=== PATIENT | female | born 1985 | race Caucasian/White ===

== ENCOUNTER → 2024-07-31 15:15 | Outpatient (CLI) | payer OTHER, SELFPAY ==
[2024-07-31 20:24] LABS: Urine N gonorrhoeae NOT DETECTED
[2024-07-31 20:31] LABS: Urine Chlamydia NOT DETECTED
== END ==
PROVIDERS: Visit Provider Student in an Organized Health Care Education/Training Program
DX: Z11.3 Encounter for screening for infections with a predominantly sexual mode of transmission (principal)
CPT/HCPCS: 87491; 87591

== ENCOUNTER → 2024-07-31 15:36 | Outpatient (CLI) | payer OTHER, SELFPAY ==
[2024-07-31 16:49] LABS: Natera Collection Specimen Collected
== END ==
PROVIDERS: Referring Provider Student in an Organized Health Care Education/Training Program; Visit Provider Student in an Organized Health Care Education/Training Program
DX: Z34.01 Encounter for supervision of normal first pregnancy, first trimester (principal); Z11.3 Encounter for screening for infections with a predominantly sexual mode of transmission
CPT/HCPCS: 36415; 86850; 86900; 86901; 87491; 87591

== ENCOUNTER → 2024-09-25 11:55 | Outpatient (CLI) | payer OTHER, SELFPAY ==
--- NOTE | 2024-09-25 11:56 | DI.US.S_ITS ---
PROCEDURE: US OB >= 14 WEEKS FETUS INDICATIONS: 20 weeks anatomy scan OUTSIDE/PRIOR DATING DATA: Last menstrual period (LMP): 05/14/2024 LMP-based estimated date of delivery (BENJAMIN): 02/18/2025 Estimated date of delivery (BENJAMIN) from first dating scan: 02/12/2025. The calculations are made using the working BENJAMIN of 02/12/2025. TECHNIQUE: Real-time scanning was performed of the fetus, with image documentation and biometric measurements. Endovaginal scanning: Not performed COMPARISON: [facility], US, US OB <= 14 WEEKS FETUS, 07/31/2024, 15:23. FINDINGS: General: A single living intrauterine gestation is present. Presentation: Vertex Placenta: Placental position is left fundal, without previa. Amniotic fluid index: 14.4 cm, normal range is 5-24 cm. Single deepest vertical pocket is 5.2 cm. heart rate: 165 beats per minute. Maternal cervical canal: Closed and measures 6.9 cm long. Normal lower limit is 2.5 cm. biometrics: Biparietal diameter: 4.7 cm, 20 weeks, 2 days. Head circumference: 17.7 cm, 20 weeks, 1 day. Abdominal circumference: 14.4 cm, 19 weeks, 5 days. Femur length: 3.2 cm, 20 weeks, 0 day. Clinically estimated gestational age: 20 weeks, 0 day. Composite gestational age from present scan: 20 weeks, 0 day. Estimated weight and percentile: 319 g, 39%. Anatomic survey: Neuro: Ventricles are non-dilated at less than 10 mm. Cisterna magna is normal at 3-11 mm. Cerebellum is normal in size and morphology. Nuchal skin fold: Normal at less than 6 mm between 14-21 weeks gestational age. Face: Nose and lips, facial profile are normal. Spine: No evidence for spina bifida. Heart: 4-chambered heart is present, with normal ventricular outflow tracts. Diaphragm: Diaphragm is intact. Stomach: Left-sided stomach is present. Kidneys: No hydronephrosis. Normal is less than 5 mm in 2nd trimester, less than 7 mm in 3rd trimester. Cord: 3-vessel cord has orthotopic insertion. Bladder: Normal in size. Extremities: All 4 extremities identified. IMPRESSION: 1. Single live intrauterine gestation with fetus in vertex presentation. heart rate is 165 beats per minute. Normal KEILY at 14.4 cm. 2. Normal growth. Estimated weight is at 39%. 3. Normal anatomic survey. We strive to produce accurate, complete, and clear reports of imaging services. To assist us in improving patient care, this report was composed using standard report templates and voice recognition software. Therefore, it may contain abnormal punctuation, insertions and/or omissions. Occasional wrong-word or sound-alike substitutions may occur. Though we review the report and make efforts to correct it, we do recommend that the report be read carefully in proper context to recognize any text inaccuracies. Dictated by: Don Corona M.D. on 09/25/2024 at 14:54 Approved by: Don Corona M.D. on 09/25/2024 at 14:56
== END ==
PROVIDERS: Referring Provider Student in an Organized Health Care Education/Training Program; Visit Provider Student in an Organized Health Care Education/Training Program
DX: Z34.02 Encounter for supervision of normal first pregnancy, second trimester (principal); Z3A.20 20 weeks gestation of pregnancy
CPT/HCPCS: 76811

== ENCOUNTER → 2024-11-13 09:16 | Outpatient (CLI) | payer OTHER, SELFPAY ==
[2024-11-13 12:22] LABS: Hematocrit 32.6 % (36-46); Hemoglobin 11.2 g/dL (12.0-16.0)
[2024-11-13 13:10] LABS: GTT (PREG) 1 Hour PP 50gm Dose 128 mg/dL (76-139)
[2024-11-14 19:44] LABS: Hep C Virus Ab w/Reflex Quant NEGATIVE s/c (NEGATIVE)
== END ==
PROVIDERS: Referring Provider Student in an Organized Health Care Education/Training Program; Visit Provider Student in an Organized Health Care Education/Training Program
DX: Z34.00 Encounter for supervision of normal first pregnancy, unspecified trimester (principal); Z67.91 Unspecified blood type, Rh negative; Z13.1 Encounter for screening for diabetes mellitus; Z13.0 Encounter for screening for diseases of the blood and blood-forming organs and certain disorders involving the immune mechanism
CPT/HCPCS: 36415; 82950; 85014; 85018; 86803; 86850

== ENCOUNTER 2024-11-22 18:29 | Observation (INO) | payer OTHER, SELFPAY ==
--- NOTE | 2024-11-22 18:50 | DI.US.S_ITS ---
PROCEDURE: US OB BIOPHYSICAL PROFILE INDICATIONS: WORSENING DECREASED MOVEMENT X 1 WEEK OUTSIDE/PRIOR DATING DATA: Working BENJAMIN: 02/12/2025 TECHNIQUE: Real-time scanning was performed of the fetus for biophysical profile, with image documentation. Color and pulse Doppler interrogation was also performed of the umbilical artery near its insertion into the placenta. Endovaginal scanning: Not performed COMPARISON: None. FINDINGS: General: A single living intrauterine gestation is present. Presentation: Breech Placenta: Placental position is left fundal, without previa. Amniotic fluid index: 6.9 cm, normal range is 5-24 cm. Single deepest vertical pocket is 3.9 cm. heart rate: 160 beats per minute. Maternal cervical canal: 4.6 cm long. Normal lower limit is 2.5 cm. Clinically estimated gestational age: 28 weeks 1 day Biophysical profile: Tone: 2 points. Movement: 2 points. Respiration: 2 points. Largest pocket of fluid: 2 points. Umbilical artery Doppler: Not requested Nuchal cord noted x1. IMPRESSION: Single living intrauterine at 28 weeks 1 day, BENJAMIN of 02/12/2025. BPP 8 of 8. Nuchal cord x1. We strive to produce accurate, complete, and clear reports of imaging services. To assist us in improving patient care, this report was composed using standard report templates and voice recognition software. Therefore, it may contain abnormal punctuation, insertions and/or omissions. Occasional wrong-word or sound-alike substitutions may occur. Though we review the report and make efforts to correct it, we do recommend that the report be read carefully in proper context to recognize any text inaccuracies. Dictated by: Alec Sanchez M.D. on 11/22/2024 at 21:17 Approved by: Alec Sanchez M.D. on 11/22/2024 at 21:19
[2024-11-22 20:29] VITALS: BP 115/58; PULSE 87; RESP 15; TEMP 36.6
== END 2024-11-22 20:44 | disposition home or self-care (01) ==
LOC: LABOR 18:31
PROVIDERS: Admitting Provider Student in an Organized Health Care Education/Training Program; Referring Provider Student in an Organized Health Care Education/Training Program; Visit Provider Student in an Organized Health Care Education/Training Program
DX: O36.8130 Decreased fetal movements, third trimester, not applicable or unspecified (principal); Z3A.28 28 weeks gestation of pregnancy
CPT/HCPCS: 59025; 76817; 76819; 84112; G0378; G0379

== ENCOUNTER → 2024-12-04 07:00 | Outpatient (CLI) | payer OTHER, SELFPAY ==
--- NOTE | 2024-12-04 07:01 | DI.US.S_ITS ---
PROCEDURE: US OB LIMITED INDICATIONS: ADVANCED MATERNAL AGE - GROWTH OUTSIDE/PRIOR DATING DATA: The calculations are made using the BENJAMIN of 02/12/2025. TECHNIQUE: Real-time scanning was performed of the fetus, with image documentation and biometric measurements. Endovaginal scanning: Not performed COMPARISON: [facility], OB BIOPHYSICAL PROFILE, 11/22/2024, 19:43. FINDINGS: General: A single living intrauterine gestation is present. Presentation: Vertex. Placenta: Placental position is left fundal , without previa. Possible left anterior succenturiate lobe with a posterior placenta, vessel seen between the 2 placentas. Amniotic fluid index: 12.8 cm, normal range is 5-24 cm. Single deepest vertical pocket is 4.7 cm. heart rate: 153 beats per minute. Maternal cervical canal: 3.6 cm long. Normal lower limit is 2.5 cm. biometrics: Biparietal diameter: 7.6 cm, 30 weeks 4 days Head circumference: 27.4 cm, 29 weeks 6 days Abdominal circumference: 23.2 cm, 27 weeks 4 days Femur length: 5.7 cm, 30 weeks 0 days Clinically estimated gestational age: 30 weeks 0 days Composite gestational age from present scan: 29 weeks 4 days Estimated weight and percentile: 1284 g, 8th percentile Other: Normal umbilical artery SD ratios of 3.2, 2.8 and 3.1. IMPRESSION: 1. Single live intrauterine consistent with 29 weeks and 4 days. 2. Estimated weight is in the 8th percentile, recommend follow-up ultrasound. 3. Normal umbilical artery SD ratios. 4. Left fundal placenta versus posterior placenta with a left anterior succenturiate lobe. We strive to produce accurate, complete, and clear reports of imaging services. To assist us in improving patient care, this report was composed using standard report templates and voice recognition software. Therefore, it may contain abnormal punctuation, insertions and/or omissions. Occasional wrong-word or sound-alike substitutions may occur. Though we review the report and make efforts to correct it, we do recommend that the report be read carefully in proper context to recognize any text inaccuracies. Dictated by: Alfie Stearns M.D. on 12/04/2024 at 15:23 Approved by: Alfie Stearns M.D. on 12/04/2024 at 15:28
== END ==
PROVIDERS: Referring Provider Student in an Organized Health Care Education/Training Program; Visit Provider Student in an Organized Health Care Education/Training Program
DX: Z34.03 Encounter for supervision of normal first pregnancy, third trimester (principal); Z3A.30 30 weeks gestation of pregnancy
CPT/HCPCS: 76815; 76820

== ENCOUNTER 2024-12-07 11:48 | Outpatient (CLI) | payer OTHER, SELFPAY ==
--- NOTE | 2024-12-07 13:03 | PM.OBTRLD ---
Visit Information Visit Information Date of evaluation: 01/06/25 Primary OB Provider: Yomaira Bauer On-call OB Provider: Zohra Avila Reason for Evaluation: Yes non-stress test Comments/Additional reasons for admission: IUGR [facility] Medical History (Updated 01/08/25 @ 10:13 by Yomaira Bauer DO) Headache Ovarian cyst (~2008) Infertility (~1999) Migraine with aura Lumbar disc herniation PCOS (polycystic ovarian syndrome) Menorrhagia (~1999) Surgical History (Updated 07/24/24 @ 13:47 by Leonila Hernandez RN) No pertinent past surgical history Family History (Updated 07/24/24 @ 13:56 by Leonila Hernandez RN) Mother HELLP syndrome Twin Sister HELLP syndrome Cjraq-Mcvsumkml-Ciypu (WPW) syndrome Aunt VSD (ventricular septal defect) Aunt Hypertension Family/Other Renal agenesis Grandmother Brain aneurysm Grandmother Stroke Grandfather Alzheimer's disease Grandfather Heart valve replaced Aunt Alzheimer's disease Family/Other Fxpeo-Tgkylojvg-Ueabq (WPW) syndrome Social History marital status: unmarried,single number of children: 0 household members: family lives independently: Yes caregiver/support person: No housing: other (RV usually, currently at parents' home) pets and animals: No education level: college (currently working on Master's degree for mental health counseling) occupational status: previously employed current occupational exposures/hazards: No 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 travel history: recent (domestic only) seatbelt use: always water heater temp set < 120 deg: Yes working smoke detector in home: Yes fire extinguisher in home: Yes carbon monox detector in home: Yes firearms in home: Yes firearms unloaded and locked: Yes do you feel safe at home: Yes Tobacco: How many years used: 2 second hand exposure: Yes (mom vapes outside) alcohol intake: former (very rarely when not ) substance use type: does not use during the past year weight has: remained stable well-balanced diet: about half the time daily servings fruits/ve-4 caffeine: No Type(s) of exercise: none Evaluation Evaluation Baseline heart rate: 135 Variability: Average (6-10) monitor accelerations: Present Monitor Decelerations: Absent Category of Tracing: Reactive Status: Category l Diagnosis, Plan/Disposition Plan/Disposition Plan: continue surveillance as scheduled
== END 2024-12-07 13:05 | disposition home or self-care (01) ==
LOC: LABOR 12:44 → OB 13:34
PROVIDERS: Referring Provider Student in an Organized Health Care Education/Training Program; Visit Provider Obstetrics & Gynecology
DX: Z36.9 Encounter for antenatal screening, unspecified (principal)
CPT/HCPCS: 59025; G0378; G0379

== ENCOUNTER 2024-12-13 12:56 | Outpatient (CLI) | payer OTHER, SELFPAY | END 2024-12-13 13:30 | disposition home or self-care (01) | LOC: OB 15:54 | PROVIDERS: Referring Provider Student in an Organized Health Care Education/Training Program; Visit Provider Student in an Organized Health Care Education/Training Program | DX: O09.513 Supervision of elderly primigravida, third trimester (principal); O36.5930 Maternal care for other known or suspected poor fetal growth, third trimester, not applicable or unspecified; O41.03X0 Oligohydramnios, third trimester, not applicable or unspecified; Z3A.31 31 weeks gestation of pregnancy | CPT/HCPCS: 59025; G0378; G0379 ==

== ENCOUNTER 2024-12-18 12:48 | Outpatient (CLI) | payer OTHER, SELFPAY ==
--- NOTE | 2024-12-18 13:24 | DI.US.S_ITS ---
PROCEDURE: US UMBILICAL CORD DOPPLER INDICATIONS: IUGR, oligohydramnios OUTSIDE/PRIOR DATING DATA: Last menstrual period (LMP): 05/14/2024 LMP-based estimated date of delivery (BENJAMIN): 08/21/2024 First dating scan (date and location): 07/31/2024 Estimated date of delivery (BENJAMIN) from first dating scan: 02/12/2025 The calculations are made using the working BENJAMIN of 02/12/2025. COMPARISON: None. TECHNIQUE: Real-time scanning was performed of the fetus, with image documentation. Color and pulse Doppler interrogation was then performed of the umbilical artery near its insertion into the placenta. FINDINGS: General: Single living intrauterine gestation is present. Presentation: Vertex Placenta: Left fundal KEILY 8.5 cm Single deepest vertical pocket: 4.3 cm heart rate: 143 BPM EGA: 32 week 0 day Umbilical artery S/D ratios: 3.8, 3.2, 2.7 IMPRESSION: Single live intrauterine consistent with 32 week 0 day gestation Approved by: Hesham Alonzo M.D. on 12/18/2024 at 15:02
--- NOTE | 2024-12-18 14:43 | P.TNLD_ITS ---
Visit Information Visit Information Date of evaluation: 12/18/24 On-call OB Provider: Yomaira Bauer Reason for Evaluation: Yes non-stress test Vital Signs Vital Signs: BP 109/75, P 102, T 37.1 [facility] Medical History (Updated 12/18/24 @ 15:03 by Yomaira Bauer DO) Headache Ovarian cyst (~2008) Infertility (~1999) Migraine with aura Lumbar disc herniation PCOS (polycystic ovarian syndrome) Menorrhagia (~1999) Surgical History (Updated 07/24/24 @ 13:47 by Leonila Hernandez RN) No pertinent past surgical history Family History (Updated 07/24/24 @ 13:56 by Leonila Hernandez RN) Mother HELLP syndrome Twin Sister HELLP syndrome Mlbtl-Ojdsxkvzz-Xzyht (WPW) syndrome Aunt VSD (ventricular septal defect) Aunt Hypertension Family/Other Renal agenesis Grandmother Brain aneurysm Grandmother Stroke Grandfather Alzheimer's disease Grandfather Heart valve replaced Aunt Alzheimer's disease Family/Other Xbbfw-Suwbjjhvd-Ovety (WPW) syndrome Social History marital status: unmarried,single number of children: 0 household members: family lives independently: Yes caregiver/support person: No housing: other (RV usually, currently at parents' home) pets and animals: No education level: college (currently working on Master's degree for mental health counseling) occupational status: previously employed current occupational exposures/hazards: No 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 travel history: recent (domestic only) seatbelt use: always water heater temp set < 120 deg: Yes working smoke detector in home: Yes fire extinguisher in home: Yes carbon monox detector in home: Yes firearms in home: Yes firearms unloaded and locked: Yes do you feel safe at home: Yes Tobacco: How many years used: 2 second hand exposure: Yes (mom vapes outside) alcohol intake: former (very rarely when not ) substance use type: does not use during the past year weight has: remained stable well-balanced diet: about half the time daily servings fruits/ve-4 caffeine: No Type(s) of exercise: none Evaluation Evaluation Baseline heart rate: 135 Variability: Moderate (6-25) monitor accelerations: Present Monitor Decelerations: Absent Category of Tracing: Reactive Diagnosis, Plan/Disposition Final Diagnosis (1) affected by growth restriction: Status: Acute (2) 31 weeks gestation of : Status: Acute Plan/Disposition Plan: 39-year-old at 31+ 6 weeks presenting today for NST and weekly UA dopplers. Reactive NST, with normal UA Dopplers today. -follow up later this week for repeat NST -follow up with MFM next week OB Disposition: home
== END 2024-12-18 13:45 | disposition home or self-care (01) ==
LOC: OB 14:58
PROVIDERS: Referring Provider Student in an Organized Health Care Education/Training Program; Visit Provider Student in an Organized Health Care Education/Training Program
DX: O26.893 Other specified pregnancy related conditions, third trimester (principal); Z3A.31 31 weeks gestation of pregnancy; Z67.91 Unspecified blood type, Rh negative; O36.5990 Maternal care for other known or suspected poor fetal growth, unspecified trimester, not applicable or unspecified
CPT/HCPCS: 59025; 76820; G0378; G0379

== ENCOUNTER 2024-12-21 12:46 | Observation (INO) | payer OTHER, SELFPAY | END 2024-12-21 13:47 | disposition home or self-care (01) | LOC: LABOR 12:48 | PROVIDERS: Admitting Provider Student in an Organized Health Care Education/Training Program; Referring Provider Student in an Organized Health Care Education/Training Program; Visit Provider Student in an Organized Health Care Education/Training Program | DX: O09.513 Supervision of elderly primigravida, third trimester (principal); O36.5930 Maternal care for other known or suspected poor fetal growth, third trimester, not applicable or unspecified; O41.03X0 Oligohydramnios, third trimester, not applicable or unspecified; Z3A.32 32 weeks gestation of pregnancy | CPT/HCPCS: 59025; G0378; G0379 ==

== ENCOUNTER 2025-01-01 12:55 | Outpatient (CLI) | payer OTHER, SELFPAY ==
--- NOTE | 2025-01-01 13:37 | P.TNLD_ITS ---
Visit Information Visit Information Date of evaluation: 01/01/25 Primary OB Provider: Yomaira Bauer On-call OB Provider: Zohra Avila Reason for Evaluation: Yes non-stress test Vital Signs Vital Signs: reviewed in OBIX wnl [facility] Medical History (Updated 12/18/24 @ 15:03 by Yomaira Bauer DO) Headache Ovarian cyst (~2008) Infertility (~1999) Migraine with aura Lumbar disc herniation PCOS (polycystic ovarian syndrome) Menorrhagia (~1999) Surgical History (Updated 07/24/24 @ 13:47 by Leonila Hernandez RN) No pertinent past surgical history Family History (Updated 07/24/24 @ 13:56 by Leonila Hernandez RN) Mother HELLP syndrome Twin Sister HELLP syndrome Xebjf-Lkbwsxelp-Ugogo (WPW) syndrome Aunt VSD (ventricular septal defect) Aunt Hypertension Family/Other Renal agenesis Grandmother Brain aneurysm Grandmother Stroke Grandfather Alzheimer's disease Grandfather Heart valve replaced Aunt Alzheimer's disease Family/Other Zjjtd-Iwgvkcuzo-Cjasm (WPW) syndrome Social History marital status: unmarried,single number of children: 0 household members: family lives independently: Yes caregiver/support person: No housing: other (RV usually, currently at parents' home) pets and animals: No education level: college (currently working on Master's degree for mental health counseling) occupational status: previously employed current occupational exposures/hazards: No 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 travel history: recent (domestic only) seatbelt use: always water heater temp set < 120 deg: Yes working smoke detector in home: Yes fire extinguisher in home: Yes carbon monox detector in home: Yes firearms in home: Yes firearms unloaded and locked: Yes do you feel safe at home: Yes Tobacco: How many years used: 2 second hand exposure: Yes (mom vapes outside) alcohol intake: former (very rarely when not ) substance use type: does not use during the past year weight has: remained stable well-balanced diet: about half the time daily servings fruits/ve-4 caffeine: No Type(s) of exercise: none Evaluation Evaluation Variability: Moderate (6-25) monitor accelerations: Present Monitor Decelerations: Absent Category of Tracing: Reactive Status: Category l Diagnosis, Plan/Disposition Plan/Disposition Plan: routine precautions f./u as scheduled OB Disposition: home
== END 2025-01-01 13:35 | disposition home or self-care (01) ==
LOC: LABOR 13:36 → OB 01-02 17:28
PROVIDERS: Referring Provider Student in an Organized Health Care Education/Training Program; Visit Provider Student in an Organized Health Care Education/Training Program
DX: O41.03X0 Oligohydramnios, third trimester, not applicable or unspecified (principal); O09.513 Supervision of elderly primigravida, third trimester; Z3A.33 33 weeks gestation of pregnancy
CPT/HCPCS: 59025; G0378; G0379

== ENCOUNTER → 2025-01-07 13:40 | Outpatient (CLI) | payer OTHER, SELFPAY ==
[2025-01-07 14:32] LABS: Add Manual Diff / Slide Review NO; Hematocrit 35.4 % (36-46); Hemoglobin 12.5 g/dL (12.0-16.0); Lymphocytes Absolute Auto 1500 /uL (1100-4500); Mean Corpuscular HGB Conc 35.1 % (30-36); Mean Corpuscular Hemoglobin 32.0 PG (26-34); Mean Corpuscular Volume 91.0 fL (80-100); Platelet Count 133 X10^3/uL (150-400)
== END ==
PROVIDERS: Referring Provider Student in an Organized Health Care Education/Training Program; Visit Provider Student in an Organized Health Care Education/Training Program
DX: R23.3 Spontaneous ecchymoses (principal)
CPT/HCPCS: 36415; 85025

== ENCOUNTER 2025-01-12 13:08 | Outpatient (CLI) | payer OTHER, SELFPAY | END 2025-01-12 13:48 | disposition home or self-care (01) | LOC: OB 01-14 12:24 | PROVIDERS: Referring Provider Obstetrics & Gynecology; Visit Provider Obstetrics & Gynecology | DX: O99.343 Other mental disorders complicating pregnancy, third trimester (principal); F41.9 Anxiety disorder, unspecified; Z3A.38 38 weeks gestation of pregnancy | CPT/HCPCS: 59025; G0378; G0379 ==

== ENCOUNTER 2025-01-14 12:48 | Outpatient (CLI) | payer OTHER, SELFPAY ==
--- NOTE | 2025-01-14 13:22 | PM.OBTRLD ---
Visit Information Visit Information Date of evaluation: 01/14/25 Primary OB Provider: Yomaira Bauer On-call OB Provider: Noelle Dolan Reason for Evaluation: Yes non-stress test non-stress test reason: other (IUGR ) Comments/Additional reasons for admission: 39 yo G1 presenting for scheduled NST for AMA. complicated by IUGR s/p MFM f/up resolution but plan for continued NSTs. [facility] Medical History (Updated 01/08/25 @ 10:13 by Yomaira Bauer DO) Headache Ovarian cyst (~2008) Infertility (~1999) Migraine with aura Lumbar disc herniation PCOS (polycystic ovarian syndrome) Menorrhagia (~1999) Surgical History (Updated 07/24/24 @ 13:47 by Leonila Hernandez, RN) No pertinent past surgical history Family History (Updated 07/24/24 @ 13:56 by Leonila Hernandez RN) Mother HELLP syndrome Twin Sister HELLP syndrome Lqfmu-Ubcapinmy-Tylek (WPW) syndrome Aunt VSD (ventricular septal defect) Aunt Hypertension Family/Other Renal agenesis Grandmother Brain aneurysm Grandmother Stroke Grandfather Alzheimer's disease Grandfather Heart valve replaced Aunt Alzheimer's disease Family/Other Iodis-Alzuziusq-Bgsbe (WPW) syndrome Social History marital status: unmarried,single number of children: 0 household members: family lives independently: Yes caregiver/support person: No housing: other (RV usually, currently at parents' home) pets and animals: No education level: college (currently working on Master's degree for mental health counseling) occupational status: previously employed current occupational exposures/hazards: No 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 travel history: recent (domestic only) seatbelt use: always water heater temp set < 120 deg: Yes working smoke detector in home: Yes fire extinguisher in home: Yes carbon monox detector in home: Yes firearms in home: Yes firearms unloaded and locked: Yes do you feel safe at home: Yes Tobacco: How many years used: 2 second hand exposure: Yes (mom vapes outside) alcohol intake: former (very rarely when not ) substance use type: does not use during the past year weight has: remained stable well-balanced diet: about half the time daily servings fruits/ve-4 caffeine: No Type(s) of exercise: none Exam Vital Signs (past 8 hours): BP: 104/65 P- 88 T- 36.5C Evaluation Evaluation Baseline heart rate: 150 Variability: Moderate (6-25) monitor accelerations: Present Monitor Decelerations: Absent Contraction Frequency (minutes): 0 Status: Category l Diagnosis, Plan/Disposition Plan/Disposition Plan: 39 yo G1 presenting for scheduled NST for AMA. complicated by IUGR s/p MFM f/up resolution but plan for continued NSTs. NST reactive today. pt d/c'ed home, continue f/up wtih Primary OB OB Disposition: home
== END 2025-01-14 13:23 | disposition home or self-care (01) ==
LOC: LABOR 12:55 → OB 15:57
PROVIDERS: Referring Provider Family Medicine; Visit Provider Family Medicine
DX: O09.513 Supervision of elderly primigravida, third trimester (principal); O36.5930 Maternal care for other known or suspected poor fetal growth, third trimester, not applicable or unspecified; Z3A.38 38 weeks gestation of pregnancy
CPT/HCPCS: 59025; G0378; G0379

== ENCOUNTER 2025-01-17 22:06 | Outpatient (CLI) | payer OTHER, SELFPAY ==
--- NOTE | 2025-01-17 22:10 | DI.US.S_ITS ---
PROCEDURE: US OB BIOPHYSICAL PROFILE INDICATIONS: decreased movement OUTSIDE/PRIOR DATING DATA: Working BENJAMIN: 02/12/2025 TECHNIQUE: Real-time scanning was performed of the fetus for biophysical profile, with image documentation. Endovaginal scanning: Not performed COMPARISON: [facility], , OB BIOPHYSICAL PROFILE, 11/22/2024, 19:43. FINDINGS: General: A single living intrauterine gestation is present. Presentation: Vertex. Placenta: Placental position is left fundal , without previa. Amniotic fluid index: 16 cm, normal range is 5-24 cm. Single deepest vertical pocket is 5.5 cm. heart rate: 119 beats per minute. Maternal cervical canal: Not visualized. Clinically estimated gestational age: 36 weeks 2 days. Biophysical profile: Tone: 2 points. Movement: 2 points. Respiration: 2 points. Largest pocket of fluid: 2 points. Umbilical artery Doppler: Not requested. IMPRESSION: Single living intrauterine at 36 weeks 2 days, BENJAMIN of 02/12/2025. BPP 8 of 8. We strive to produce accurate, complete, and clear reports of imaging services. To assist us in improving patient care, this report was composed using standard report templates and voice recognition software. Therefore, it may contain abnormal punctuation, insertions and/or omissions. Occasional wrong-word or sound-alike substitutions may occur. Though we review the report and make efforts to correct it, we do recommend that the report be read carefully in proper context to recognize any text inaccuracies. Dictated by: Alec Sanchez M.D. on 01/17/2025 at 23:23 Approved by: Alec Sanchez M.D. on 01/17/2025 at 23:24
== END 2025-01-17 23:11 | disposition home or self-care (01) ==
LOC: LABOR 23:19 → OB 01-21 10:59
PROVIDERS: Referring Provider Student in an Organized Health Care Education/Training Program; Visit Provider Student in an Organized Health Care Education/Training Program
DX: O36.8130 Decreased fetal movements, third trimester, not applicable or unspecified (principal); O09.513 Supervision of elderly primigravida, third trimester; Z3A.36 36 weeks gestation of pregnancy
CPT/HCPCS: 59025; 76819; G0378; G0379

== ENCOUNTER 2025-01-22 10:16 | Outpatient (CLI) | payer OTHER, SELFPAY | END 2025-01-22 10:48 | disposition home or self-care (01) | LOC: LABOR 10:48 → OB 01-23 17:02 | PROVIDERS: Referring Provider Student in an Organized Health Care Education/Training Program; Visit Provider Student in an Organized Health Care Education/Training Program | DX: O09.513 Supervision of elderly primigravida, third trimester (principal); O41.03X0 Oligohydramnios, third trimester, not applicable or unspecified; Z36.85 Encounter for antenatal screening for Streptococcus B; Z3A.36 36 weeks gestation of pregnancy | CPT/HCPCS: 59025; 87653; G0378; G0379 ==

== ENCOUNTER → 2025-01-22 11:36 | Outpatient (CLI) | payer OTHER, SELFPAY ==
[2025-01-23 11:22] LABS: Strep Grp B PCR NEG for Grp B Strep
== END ==
PROVIDERS: Visit Provider Student in an Organized Health Care Education/Training Program
DX: Z36.85 Encounter for antenatal screening for Streptococcus B (principal)
CPT/HCPCS: 87653

== ENCOUNTER 2025-01-24 07:04 | Inpatient (IN) | payer OTHER, SELFPAY ==
--- NOTE | 2025-01-24 08:34 | PM.OBHP.IH.1 ---
OB HPI Date/Time Date of admission: 01/24/25 Date Patient Seen: 01/24/25 Time Patient Seen: 09:15 History of Present Condition Chief complaint: Induction BENJAMIN Calculator Estimated Delivery Date Method Current WG Current Estimate 02/13/25 Ultrasound #1 37w 1d Other Estimates 02/18/25 LMP (Uncertain) 36w 3d 02/10/25 Ultrasound #2 37w 4d : 1 Para: 0 Narrative: 39yo at 37+1wks admitted for IOL due to diagnosis of FGR with increased doppler resistance yesterday at [facility]. She reports physically feeling well, denies leaking fluid or vaginal bleeding. care: good care Dating criteria OB: LMP confirmed by 1st trimester US Ultrasounds: normal mid trimester US Obstetrical complications: growth restriction Narrative: Ultrasound Ultrasound Details:: Anatomy US 09/25/24: normal anatomy, fundal placenta, EFW 39%ile Growth US 12/04/24: EFW 8%ile, normal UA dopplers Specific Issues/Plans G1 [x ] cfDNA- low risk XX; [x ] Rh D- POS; declined carrier screening FGR (EFW 8%ile at 30wks)--> [x ] MFM referral- scheduled for 12/25/24; followup growth scheduled with MFM (scheduled for 01/23) EFW 10% with increased doppler resistance (recommended IOL 37wks) gestational thrombocytopenia (133) AMA (>40yo)--> [x] ASA at 12wks (AMA & FHx of HELLP); [ x] growth sono 32wks (see above); [x ] weekly NSTs 34wks; [x ] IOL at 39wks per MFM Rh negative --> [ x] rhogam at 28wks Partner in [place] (now broke up, not involved) Assigned to [facility] Indications Indication for induction OB: intra-uterine growth restriction Preadmission Labs Last OB Lab Results: Blood Type A Negative 07/31/24, 15:45 Antibody Screen Negative 11/13/24, 10:47 Hct, (36-46) 35.9 % L Today, 08:00 Hgb, (12.0-16.0) 12.2 g/dL Today, 08:00 Hepatitis C Antibody, (NEGATIVE) Negative s/c 11/13/24, 10:47 Glucose 1 Hr 50 gm, (76-139) 128 mg/dL 11/13/24, 10:47 Group B Strep (PCR) Neg for grp b strep 01/22/25, 11:36 Glucose Tolerance Testin hr (negative) -: Chlamydia screen: negative, Gonorrhea screen: negative and Urine: negative -: PAP smear: Normal Genetic Screens: Cell-free DNA: Normal External Labs -: Urine: negative Evaluation Evaluation Baseline heart rate: 140 Variability: Moderate (6-25) monitor accelerations: Present Monitor Decelerations: Absent Contraction Frequency (minutes): 5 Uterine Contraction Intensity: Mild Status: Category l Dilation (cm): 1 Effacement (%): 50 station: -3 Position of cervix: posterior [facility] Medical History (Updated 01/22/25 @ 11:52 by Yomaira Buaer DO) Headache Ovarian cyst (~2008) Infertility (~1999) Migraine with aura Lumbar disc herniation PCOS (polycystic ovarian syndrome) Menorrhagia (~1999) Surgical History (Updated 07/24/24 @ 13:47 by Leonila Hernandez RN) No pertinent past surgical history Family History (Updated 07/24/24 @ 13:56 by Leonila Hernandez RN) Mother HELLP syndrome Twin Sister HELLP syndrome Hxxdr-Bbryenqln-Ohlic (WPW) syndrome Aunt VSD (ventricular septal defect) Aunt Hypertension Family/Other Renal agenesis Grandmother Brain aneurysm Grandmother Stroke Grandfather Alzheimer's disease Grandfather Heart valve replaced Aunt Alzheimer's disease Family/Other Axipz-Myrawyfdc-Hjnjt (WPW) syndrome Social History marital status: unmarried,single number of children: 0 household members: family lives independently: Yes caregiver/support person: No housing: other (RV usually, currently at parents' home) pets and animals: No education level: college (currently working on Master's degree for mental health counseling) occupational status: previously employed current occupational exposures/hazards: No 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 travel history: recent (domestic only) seatbelt use: always water heater temp set < 120 deg: Yes working smoke detector in home: Yes fire extinguisher in home: Yes carbon monox detector in home: Yes firearms in home: Yes firearms unloaded and locked: Yes do you feel safe at home: Yes Tobacco: How many years used: 2 second hand exposure: Yes (mom vapes outside) alcohol intake: former (very rarely when not ) substance use type: does not use during the past year weight has: remained stable well-balanced diet: about half the time daily servings fruits/ve-4 caffeine: No Type(s) of exercise: none Meds Home Medications and Allergies Home Medications ?Medication ?Instructions ?Recorded ?Confirmed ?Type vitamin-ferrous sulfate 1 tab PO DAILY 07/24/24 01/24/25 History 27 mg iron-folic acid 0.8 mg tablet aspirin 81 mg tablet 81 mg PO DAILY 11/22/24 01/24/25 History ferrous sulfate PO 01/24/25 History Allergies Allergy/AdvReac Type Severity Reaction Status Date / Time No Known Drug Allergies Allergy Verified 01/24/25 09:59 Review of Systems Review of Systems ROS: Yes All systems reviewed with the patient and are negative except as otherwise documented OB Exam Vital signs Blood Pressure: 113/77 Pulse Rate: 96 Temperature: 97.3 F HENMT Head: normal to inspection and normocephalic Eyes General: appearance normal, both eyes and all related structures Resp Effort & Inspection: normal respiratory effort and able to speak in complete sentences Extremities Lower extremity: Yes normal to inspection GI Inspection: normal to inspection Other: gravid, nontender, nondistended Objective Labs 01/24/25 08:00 Assessment and Plan Assessment and Plan Assessment and Plan narrative: 39yo at 37+1wks admitted for induction of labor due to growth restriction with increased UA doppler flow resistance. Her PNC is also c/b gestational thrombocytopenia, advanced maternal age, and Rh negative status. -CBC, T&S on admission -continuous EFM -epidural PRN -GBS neg, ppx not indicated -PPH risk low -VTE risk low, SCDs with epidural -anticipate L&D Counseling: Common procedures and interventions related to the management of were explained to the patient, including assistance at vaginal delivery with episiotomy, vacuum, or forceps, use of medications to stop premature labor or induce labor, and assessment including auscultation (listening to the heart), use of electronic monitoring (external and / or internal), and use of scalp electrode and/or intrauterine pressure catheter.? It was also explained that approximately 20-30% of mothers have a need for delivery during their labor course. It was explained to the patient that , labor and delivery are ordinarily normal physiological events and can be expected to provide a healthy outcome for mother and baby in the majority of cases. However, there are complications that may arise during , labor, and delivery, such as: hemorrhage requiring administration of blood and/or blood products, surgical intervention, possibly even hysterectomy for life-saving purposes; possibility of infection requiring antibiotics, prolonged hospital stay, and rarely surgical intervention; possibility of blood clots;? possibility of retained products of conception requiring surgical intervention;? possibility of serious tears or injury to the vagina, cervix, perineum, or rectum;? possibility of injury to abdominal structures if delivery is required;? and rarely maternal or may occur. Time-Based Coding :: [45min] spent with patient and on the chart (including review of chart, obtaining history, exam, reviewing outside data, placing orders, documenting exam and treatment plan, and counseling patient) on [01/24/25].
[2025-01-24 09:22] LABS: Add Manual Diff / Slide Review NO; Hematocrit 35.9 % (36-46); Hemoglobin 12.2 g/dL (12.0-16.0); Lymphocytes Absolute Auto 1900 /uL (1100-4500); Mean Corpuscular HGB Conc 34.0 % (30-36); Mean Corpuscular Hemoglobin 30.9 PG (26-34); Mean Corpuscular Volume 90.9 fL (80-100); Platelet Count 123 X10^3/uL (150-400)
[2025-01-24 10:03] VITALS: BP 113/77; PULSE 96; TEMP 36.3
[2025-01-24 10:07] VITALS: BP 113/77
[2025-01-24] MEDS: DINOPROSTONE VAG (CERVIDIL) 10 MG VAG (10:43)
--- NOTE | 2025-01-25 07:30 | PM.OBPNLAB ---
Date/Time Date Patient Seen: 01/25/25 Time Patient Seen: 07:10 Pain Control Pain control: tolerating well Pelvic Exam Dilation (cm): 1 Effacement (%): 25 station: -3 Contractions Contraction frequency (min): 5 Contraction pattern: Irregular Contraction intensity: Mild Status status: Category l Heart Rate Baseline: 140 Monitor Accelerations: Present Monitor Decelerations: Absent Monitor Variability: Moderate Assessment and Plan Assessment: induction ongoing Comments: 39yo at 37+2wks admitted for IOL due to FGR. She received cervidil yesterday, then 2 doses of cytotec overnight. Gooden bulb placed this morning at 7:20am. -continue cytotec for now -re-evaluate after gooden bulb expulsed
--- NOTE | 2025-01-25 13:04 | PM.OBPNLAB ---
Date/Time Date Patient Seen: 01/25/25 Time Patient Seen: 13:04 Pain Control Pain control: tolerating well Pelvic Exam Dilation (cm): 3 Effacement (%): 25 station: -3 Amniotic membrane status: Intact Contractions Contraction frequency (min): 5 Contraction pattern: Irregular Contraction intensity: Mild Status status: Category ll Heart Rate Baseline: 160 Monitor Accelerations: Present Monitor Decelerations: Periodic Monitor Variability: Moderate Assessment and Plan Assessment: induction ongoing Comments: 39-year-old at 37+ 2 weeks, undergoing induction of labor. Francisco bulb came out around noon. SVE as above. -repeat cytotec dose (now s/p 3 doses)
[2025-01-25] MEDS: LACTATED RINGERS 1,000 ML 100 ML IV (17:05)
[2025-01-25] MEDS: OXYTOCIN PREMIX 30 UNIT/500 ML PLAST..BAG 200 UNIT IV (17:06)
[2025-01-25] MEDS: fentaNYL 100 MCG/2 ML INJ 50 MCG IV (18:22)
[2025-01-25 19:28] LABS: Add Manual Diff / Slide Review NO; Hematocrit 24.1 % (36-46); Hemoglobin 8.0 g/dL (12.0-16.0); Lymphocytes Absolute Auto 800 /uL (1100-4500); Mean Corpuscular HGB Conc 33.3 % (30-36); Mean Corpuscular Hemoglobin 31.0 PG (26-34); Mean Corpuscular Volume 93.2 fL (80-100); Platelet Count 69 X10^3/uL (150-400)
[2025-01-25 19:45] LABS: Add Manual Diff / Slide Review NO; Hematocrit 37.2 % (36-46); Hemoglobin 12.7 g/dL (12.0-16.0); Lymphocytes Absolute Auto 1400 /uL (1100-4500); Mean Corpuscular HGB Conc 34.1 % (30-36); Mean Corpuscular Hemoglobin 31.1 PG (26-34); Mean Corpuscular Volume 91.1 fL (80-100); Platelet Count 111 X10^3/uL (150-400)
--- NOTE | 2025-01-25 20:24 | PM.AN.REGBLK ---
[facility] <Zarina Dsouza CRNA - Last Filed: 01/25/25 20:33> Pre-procedure PMH/ROS narrative: 39-year-old at 37+ 2 weeks, undergoing induction of labor, called to bedside to place epidural for labor pain relief Exam narrative: See pre-anesthesia worksheet ASA Class: II Labs: Hct 37.2 % (36-46) 01/25/25 19:40 Plt Count 111 X10^3/uL (150-400) L 01/25/25 19:40 Medications: Current Medications Generic Name Dose Route Start Last Admin Trade Name Freq PRN Reason Stop Dose Admin Calcium Carbonate 1,000 mg 01/24/25 08:31 Calcium Carbonate 500 Mg Tab PO Q2HR PRN Dyspepsia Carboprost Tromethamine 250 mcg 01/24/25 08:31 Carboprost 250 Mcg/Ml Ampul IM Q90M PRN Bleeding Fentanyl 50 mcg 01/25/25 18:09 01/25/25 18:22 Fentanyl 100 Mcg/2 Ml Inj IV 50 mcg Q1H PRN Administration Pain, Severe (7-10) Oxytocin/Lactated Ringer's 30 unit in 500 mls @ 200 mls/hr 01/24/25 08:31 01/25/25 17:06 Oxytocin Premix IV 200 mls/hr CONT PRN Administration Bleeding Protocol Tranexamic Acid 1,000 mg/ 100 mls @ 600 mls/hr 01/24/25 08:31 Sodium Chloride IV NOW PRN Bleeding Oxytocin/Lactated Ringer's 30 unit in 500 mls @ 2 mls/hr 01/25/25 16:42 Oxytocin Premix IV TITRATE ZE Protocol 2 MILLIUNIT/MIN Lidocaine HCl 20 ml 01/24/25 08:31 Lidocaine 1% 20 Ml INJ INTRA-OP PRN Post Delivery Methylergonovine Maleate 0.2 mg 01/24/25 08:31 Methylergonovine 0.2 Mg Tablet PO Q6HR PRN Heavy Bleeding Methylergonovine Maleate 0.2 mg 01/24/25 08:31 Methylergonovine 0.2 Mg/Ml Vial IM NOW PRN Bleeding Misoprostol 800 mcg 01/24/25 08:31 Misoprostol 200 Mcg Tablet MN NOW PRN Bleeding Misoprostol 400 mcg 01/24/25 08:31 Misoprostol 200 Mcg Tablet SL NOW PRN Bleeding Misoprostol 25 mcg 01/24/25 23:15 01/25/25 12:59 Misoprostol 25 Mcg Tablet PO 25 mcg Q4H ZE Administration Naloxone HCl 0.2 mg 01/24/25 08:31 Naloxone 0.4 Mg/Ml Vial IV Q2MIN PRN Opiate Reversal Ondansetron HCl 4 mg 01/24/25 08:31 Ondansetron 4 Mg/2 Ml Inj IV Q4HR PRN Nausea And Vomiting Oxytocin 10 unit 01/24/25 08:31 Oxytocin 10 Unit/Ml Vial IM NOW PRN Bleeding Allergies: Allergies Allergy/AdvReac Type Severity Reaction Status Date / Time No Known Drug Allergies Allergy Verified 01/24/25 09:59 Procedure Insertion date: 01/25/25 Insertion time: 19:57 Prep/Local: betadine x3 (Chloraprep) and 1% lidocaine Interspace: L3-L4 Patient position: sitting Needle: 17 gauge Tuohy Loss of resistance with: saline VIKI at (cm): 6 Catheter placed at SKIN (cm): 14 Catheter in SPACE (cm): 8 Insertion: Yes CSF, No Blood, No Paresthesia with insertion, No Paresthesia with injection and No Test dose reaction Initial Medications TEST DOSE time: 20:01 TEST DOSE: 1.5% lidocaine with epinephrine 1:200k (mL): 5 BOLUS DOSE time: 20:15 BOLUS DOSE (mL): 10 (1ml 0.25% bupivacaine intrathecal dose @1958, then 10ml epidural bolus from pump @ 2014) Infusion INFUSION: 0.125% bupivacaine and with fentanyl 2 mcg/mL Initial rate (mL/hr): 8 Post-procedure Anesthesia date START: 01/25/25 Anesthesia time START: 19:50 <Beth Kaur CRNA - Last Filed: 01/28/25 08:17> Pre-procedure --: 2040 pt with c/o contraction pain. decision made to remove epidural catheter. 2044 sterile prep, drape and prep with sterile technique. v/s/s. lido 1% cc skin wheel at l3 l4. 17 g tuohy advanged with VIKI using saline at 6 cm. 27 x pencil SAB needle + csf, - heme 0.5 mL lido 1% injected into the intrathecal space. 2052 intrathecal dose 2052 flushed epidural with 5 cc ns and threaded catheter in 2054 test dose negative 2058 pump restarted 2058 bolus of 5 ml infusate Post-procedure Anesthesia date END: 01/26/25 Anesthesia time END: 02:13 Post-procedure Anesthesia Assessment: Yes CV function: HR/BP stable, Yes Resp function: RR/sat/airway adequate, Yes Post-op hydration adequate, Yes Pain control adequate, Yes Nausea & vomiting absent, Yes Temperature > 36 C and Yes Mental status appropriate
--- NOTE | 2025-01-25 22:00 | PM.OBPNLAB ---
Pain Control Pain control: epidural Pelvic Exam Dilation (cm): 8 (per RN exam) Amniotic membrane status: Ruptured Status status: Category ll Heart Rate Baseline: 155 Monitor Accelerations: Present Monitor Decelerations: Periodic and Variable Monitor Variability: Moderate Assessment and Plan Comments: Called with update from RN. Patient comfortable with epidural, 8cm dilated with thin effacement. I reviewed the tracing at 2203, category II with occasional non-recurrent variable & late decels, however overall with moderate variability and 15x15 accels, thus will continue expectant management at this time. -anticipate
[2025-01-26] MEDS: LACTATED RINGERS 1,000 ML 100 ML IV ×2 (01:18→01:19)
[2025-01-26] MEDS: TRANEXAMIC ACID 1,000 MG in SODIUM CHLORIDE 0.9% 100 ML 600 MG IV (02:30)
--- NOTE | 2025-01-26 02:30 | PM.OBPRVD ---
Labor & Delivery Delivery date: 01/26/25 Delivery Time: 02:03 Cervical ripening method: other (cervidil, misoprostol, gooden bulb) Induction method: per pitocin protocol Delivery monitor: external FHT and external uterine Route of delivery: L&D Laceration Description: Perineal - 1st Degree Delivery repair: vicryl Quantitative Blood Loss: 150 Anesthesia Type: Epidural Complications: none Narrative: The patient progressed to C/C/+2 with pitocin augmentation and epidural anesthesia. After approximately 2hrs of maternal pushing efforts, the infant delivered in OA position and restituted LOT. Nuchal cord x1 was reduced at the perineum. The anterior shoulder delivered with gentle downward pressure. The posterior shoulder and rest of body delivered with ease. The cord was doubly clamped and cut after a 60sec delay with the placed on maternal abdomen. The placenta delivered spontaneously and was intact with a 3-vessel cord. The fundus was noted to be firm with bimanual massage and pitocin. Inspection of the cervix, vagina, and perineum was notable for a 1st degree perineal laceration. Repair was performed using 3-0 Vicryl in a running, unlocked fashion. Skin was reapproximated in a running, subcuticular fashion. At the end of the repair, all tissues noted to be hemostatic. All sponges were removed from the vagina. The patient tolerated delivery well and remained in the labor room with the at the bedside. [place] Baby 1: gender: Female Placenta delivery description: Spontaneous Cord Vessel Description: 3 Vessels and Nuchal Cord score (1 min): 9 score (5 min): 9 weight: 5 lb 11.077 oz Plan for aftercare: Routine care
[2025-01-26] MEDS: DERMOPLAST SPRAY 20% 60 ML 1 SPRAY TOP (04:48)
[2025-01-26 10:05] LABS: Add Manual Diff / Slide Review NO; Hematocrit 32.4 % (36-46); Hemoglobin 11.3 g/dL (12.0-16.0); Lymphocytes Absolute Auto 1200 /uL (1100-4500); Mean Corpuscular HGB Conc 34.8 % (30-36); Mean Corpuscular Hemoglobin 31.5 PG (26-34); Mean Corpuscular Volume 90.5 fL (80-100); Platelet Count 102 X10^3/uL (150-400)
[2025-01-26] MEDS: RHO(D) IMMUNE GLOBULIN 1,500 UNIT SYRINGE 1500 UNIT IM (10:09)
[2025-01-26] MEDS: DOCUSATE 100 MG CAPSULE PO (10:10)
[2025-01-26] MEDS: PRENATAL VIT,CALC/IRON/FOLIC 1 TABLET 1 TAB PO (10:10)
[2025-01-26] MEDS: IBUPROFEN 600 MG TABLET PO ×3 (11:05→23:15)
[2025-01-27 05:16] LABS: Add Manual Diff / Slide Review NO; Hematocrit 33.5 % (36-46); Hemoglobin 11.4 g/dL (12.0-16.0); Lymphocytes Absolute Auto 1900 /uL (1100-4500); Mean Corpuscular HGB Conc 34.1 % (30-36); Mean Corpuscular Hemoglobin 31.2 PG (26-34); Mean Corpuscular Volume 91.5 fL (80-100); Platelet Count 97 X10^3/uL (150-400)
[2025-01-27] MEDS: IBUPROFEN 600 MG TABLET PO (05:36)
--- NOTE | 2025-01-27 11:24 | PM.OBDS.1 ---
Discharge Providers Provider Date of admission: 01/24/25 07:04 Discharge Date: 01/27/25 Primary care physician: Dion BECK Provider Consults: 01/24/25 08:31 Consult to Anesthesiology Urgent Comment: Consulting Provider: Anesthesiologist Reason for consultation: Epidural 01/26/25 02:41 Consult to Director Corporate Compliance Routine Comment: Discharge provider: Yomaira Bauer DO Summary Hospital Course Date Patient Seen: 01/27/25 Time Patient Seen: 11:33 Diagnoses: Term gestation at 37+3wks growth restriction Advanced maternal age Rh negative status Gestational thrombocytopenia Hospital Course: 39yo [id number] admitted at 37+1wks for induction of labor due to growth restriction. She progressed to an uncomplicated spontaneous vaginal delivery, productive of a viable female infant. Her course was uncomplicated. On day #2, she was ambulating, tolerating regular diet, voiding spontaneously with minimal lochia. Her pain was well controlled with oral medications, thus she was discharged to home on day #2. Peripartum Data Infant Delivery Method: Natural Vaginal Laceration Description: Perineal - 1st Degree Procedures: External monitoring Induction of labor Epidural anesthesia Spontaneous vaginal delivery Obstetrical laceration repair complications: none 1: Gender: Female Disposition of : home Discharge Diagnosis (1) growth restriction antepartum: Status: Acute (2) Gestational thrombocytopenia: Status: Acute (3) Rh negative status during : Status: Acute (4) Advanced maternal age (AMA), 40 years or greater: Status: Acute (5) 37 weeks gestation of : Status: Acute Status at Discharge Cognitive/behavioral status at discharge: oriented Functional status at discharge: independent ambulation Overall status at discharge: patient is progressing back to baseline Time Spent with Patient Time attestation: Total time spent providing and/or coordinating discharge services: Time spent: Less than 30 minutes Objective Labs 01/27/25 05:00 Labs: Laboratory Results - last 24 hr 01/26/25 01/27/25 09:55 05:00 WBC 12.2 H RBC 3.67 L Hgb 11.4 L Hct 33.5 L MCV 91.5 MCH 31.2 MCHC 34.1 RDW 13.4 Plt Count 97 L Neut % (Auto) 76.6 H Lymph % (Auto) 15.8 L [place] % (Auto) 5.9 Eos % (Auto) 1.2 L Baso % (Auto) 0.5 Neut # (Auto) 9300 H Lymph # (Auto) 1900 [place] # (Auto) 700 Eos # (Auto) 200 Baso # (Auto) 100 Maternal Bleed Negative Exam Vital Signs (past 8 hours): vitals reviewed in OBIX, within normal parameters Const General: cooperative, healthy appearing, comfortable and No acute distress Resp Effort & Inspection: normal respiratory effort GI Inspection: normal to inspection Other: fundus firm and nontender at U-2 Skin General: no rashes or lesions noted Neuro General: patient alert and patient awake Extrem General: normal to inspection, no pedal edema and no calf tenderness Psych Mood: congruent mood Affect: normal affect Discharge Plan Discharge Plan Patient Disposition: Home Provider Discharge Comment: Take ibuprofen 600mg every 6hrs and/or acetaminophen 650mg every 6hrs as needed for pain. Avoid placing anything in the vagina for 6 weeks. Discharge orders & Medications Prescriptions: Continued vit-ferrous sulfat-FA 27 mg iron- 0.8 mg tablet 1 tab PO DAILY ferrous sulfate [Iron (ferrous sulfate)] PO Patient Comments: takes every other day Discontinued aspirin [Adult Low Dose Aspirin] 81 mg Tablet 81 mg PO DAILY Follow up/Referrals: Yomaira Bauer DO [Physician, REMOTE SENSING SPECIALIST] Diet/Activity/Treatments Diet: Diet as Tolerated Activity: Ambulate as tolerated. Skin/Wound/Dressing Care Report to your healthcare provider any signs of infection, such as:: chills, fever, increased pain and unusual drainage Visit Report/Discharge Packet Instructions: DI for Labor and Delivery, Vaginal Stand Alone Forms: Patient Portal/API, Stroke Signs & Symptoms Discharge Data Primary Care Provider: Dion Jaimes Attending Provider: Ymoaira Bauer Admit Date/Time: 01/24/25 07:04
== END 2025-01-27 13:00 | disposition home or self-care (01) | DRG 806 ==
PROVIDERS: Admitting Provider Student in an Organized Health Care Education/Training Program; Referring Provider Student in an Organized Health Care Education/Training Program; Visit Provider Student in an Organized Health Care Education/Training Program
DX: O36.5930 Maternal care for other known or suspected poor fetal growth, third trimester, not applicable or unspecified (principal); O99.12 Other diseases of the blood and blood-forming organs and certain disorders involving the immune mechanism complicating childbirth; Z37.0 Single live birth; O76 Abnormality in fetal heart rate and rhythm complicating labor and delivery; O70.0 First degree perineal laceration during delivery; Z3A.37 37 weeks gestation of pregnancy; Z67.11 Type A blood, Rh negative
CPT/HCPCS: 36415; 59050; 59200; 85025; 85461; 86850; 86900; 86901; G0378; G0379; J2590; J2790; J3010